=== PATIENT | female | born 1965 | race Caucasian/White ===

== ENCOUNTER 2018-05-15 07:51 | Day surgery (SDC) | payer OTHER ==
[~2018-05-15] VITALS: Ht 157.5 cm; Wt 83.9 kg
[2018-05-15] MEDS ORDERED: LIDOCAINE 2% 100 MG/5 ML UJET TP ONE (08:51)
[2018-05-15] MEDS ORDERED: KETOROLAC 30 MG/ML VIAL ONE (08:51)
[2018-05-15] MEDS ORDERED: LEVO0.083 PO ×2 (10:06→10:07)
== END 2018-05-15 10:15 | disposition home or self-care (01) ==
LOC: MDS 07:51 → MMU 07:54 → MDS 10:15
PROVIDERS: ATTEND Internal Medicine Gastroenterology
DX: K62.89 Other specified diseases of anus and rectum (principal); E78.5 Hyperlipidemia, unspecified; E66.9 Obesity, unspecified; Z68.33 Body mass index [BMI] 33.0-33.9, adult; F40.240 Claustrophobia; Z79.899 Other long term (current) drug therapy; Z98.890 Other specified postprocedural states
CPT/HCPCS: 45378; J1885